=== PATIENT | male | born 1995 | race Caucasian/White ===

== ENCOUNTER 2018-10-17 00:54 | Emergency (ER) | payer BC ==
[~2018-10-17] VITALS: Ht 200.7 cm; Wt 100.0 kg
[2018-10-17 01:01] VITALS: TEMP 99.6
[2018-10-17] MEDS ORDERED: ZYRTEC5 MG PO (01:05)
[2018-10-17] MEDS ORDERED: PEPCID 20MG TAB20 MG PO (02:15)
[2018-10-17 03:00] VITALS: BP 106/53; PULSE 51
== END 2018-10-17 03:00 | disposition home or self-care (01) ==
LOC: COL.ER 00:54
DX: T78.40XA Allergy, unspecified, initial encounter (principal)

== ENCOUNTER → 2020-12-14 | Outpatient (CLI) | payer BC ==
[~2020-12-14] MED LIST: PEPCID 20MG TAB20 MG PO; ZYRTEC5 MG PO
== END ==
LOC: COL.RAD 13:30
DX: R22.1 Localized swelling, mass and lump, neck (principal)